=== PATIENT | female | born 1985 | race Caucasian/White ===

== ENCOUNTER 2016-09-16 09:59 | Emergency (ER) | payer OTHER ==
[2016-09-16 11:18] LABS: BASOPHIL % 0.4 % (0-2); PLATELET COUNT 170 x10^3mcL (130-400); RED CELL DISTRIBUTION WIDTH 13.2 % (11.5-14.5)
[2016-09-16 12:29] LABS: CALCIUM 8.7 mg/dL (8.5-10.1); CHLORIDE SERUM 99 mmol/L (98-107); CREATININE SERUM 0.8 mg/dL (0.6-1.0); GFR1 > 60 mL/min; GLUCOSE SERUM 179 mg/dL (74-106); SODIUM SERUM 141 mmol/L (136-145)
[2016-09-16 12:32] LABS: ALBUMIN 4.1 g/dL (3.4-5.0); ALKALINE PHOSPHATASE 84 U/L (46-116); ALT/SGPT 88 U/L (14-59); AST/SGOT 72 U/L (15-37); BILIRUBIN TOTAL 0.7 mg/dL (0.20-1.00); CHOLESTEROL 192 mg/dL (<200)
[2016-09-16 12:33] LABS: HDL CHOLESTEROL 30 mg/dL (40-60); TOTAL PROTEIN, SERUM 8.7 g/dL (6.4-8.2)
[2016-09-16 14:44] VITALS: BP 138/104
== END 2016-09-16 14:46 | disposition home or self-care (01) ==
LOC: ED 09:59
PROVIDERS: Emergency Medicine
DX: F41.9 Anxiety disorder, unspecified (principal); I16.0 Hypertensive urgency
CPT/HCPCS: 36415; 83880; Q0092

== ENCOUNTER 2019-12-28 12:54 | Emergency (ER) | payer MEDICAID ==
[~2019-12-28] VITALS: Ht 154.9 cm; Wt 81.2 kg
[2019-12-28 13:42] VITALS: Ht 154.9 cm; Wt 81.2 kg
[2019-12-28 16:33] VITALS: BP 151/106
== END 2019-12-28 16:33 | disposition home or self-care (01) ==
LOC: ED 12:54
DX: M25.562 Pain in left knee (principal); E11.9 Type 2 diabetes mellitus without complications; F41.9 Anxiety disorder, unspecified; E66.9 Obesity, unspecified; Z68.33 Body mass index [BMI] 33.0-33.9, adult; Z90.49 Acquired absence of other specified parts of digestive tract
CPT/HCPCS: 82962; Q0092

== ENCOUNTER 2020-01-10 20:57 | Emergency (ER) | payer OTHER ==
[~2020-01-10] VITALS: Ht 167.6 cm; Wt 81.6 kg
[2020-01-10 21:07] VITALS: Ht 167.6 cm; Wt 81.6 kg
[2020-01-11 00:05] VITALS: BP 143/76
== END 2020-01-11 00:05 | disposition home or self-care (01) ==
LOC: ED 20:57
DX: R21 Rash and other nonspecific skin eruption (principal); I10 Essential (primary) hypertension; E11.9 Type 2 diabetes mellitus without complications; F17.210 Nicotine dependence, cigarettes, uncomplicated
CPT/HCPCS: J7512; Q0163